=== PATIENT | female | born 1990 | race Caucasian/White ===

== ENCOUNTER 2021-11-19 23:09 | Emergency (ER) | payer SELFPAY ==
[2021-11-19 23:54] LABS: HEMOGLOBIN 11.5 gm/dl (12.3-15.3); RED BLOOD COUNT 3.91 M/UL (4.00-5.10); WHITE BLOOD COUNT 3.9 K/UL (4.5-11.0)
[2021-11-20 00:21] LABS: BUN/CREATININE RATIO 26 (0-10)
[2021-11-20] MEDS ORDERED: ENDOCET 5-3251 EACH PO (03:29)
== END 2021-11-20 04:00 | disposition home or self-care (01) ==
LOC: ER1 23:09
PROVIDERS: Physician Assistant
DX: S30.1XXA Contusion of abdominal wall, initial encounter (principal); S30.0XXA Contusion of lower back and pelvis, initial encounter; S20.20XA Contusion of thorax, unspecified, initial encounter; F17.210 Nicotine dependence, cigarettes, uncomplicated; Z85.528 Personal history of other malignant neoplasm of kidney; W01.10XA Fall on same level from slipping, tripping and stumbling with subsequent striking against unspecified object, initial encounter
CPT/HCPCS: 71045; 71260; 72125; 72128; 72131; 80053; 83690; 85025; 96365; 96375; 96376; 99284; J1170; J1200; J2270; J2405; J2930; Q9967